=== PATIENT | female | born 1960 | race Caucasian/White ===

== ENCOUNTER → 2018-06-16 09:38 | Day surgery (SDC) | payer MEDICAID ==
--- NOTE | 2018-06-16 12:38 | NUR ---
PRIOR TO STARTING PROCEDURE, PATIENT DECIDED SHE COULD NOT DO TEST. PROCEDURE NEVER STARTED.
== END | disposition home or self-care (01) ==
LOC: D.OPS 09:38
PROVIDERS: ATTEND Surgery
DX: K21.9 Gastro-esophageal reflux disease without esophagitis (principal); R13.10 Dysphagia, unspecified; K44.9 Diaphragmatic hernia without obstruction or gangrene; Z01.812 Encounter for preprocedural laboratory examination